=== PATIENT | female | born 1980 | race Caucasian/White ===

== ENCOUNTER 2016-12-29 13:36 | Outpatient (CLI) | payer BC | END 2016-12-29 23:00 | LOC: LAB SRH 13:36 | DX: E87.6 Hypokalemia (principal); D64.9 Anemia, unspecified | CPT/HCPCS: 90074; 90100; 92720; 95059 ==

== ENCOUNTER 2016-12-29 18:27 | Emergency (ER) | payer BC ==
--- NOTE | 2016-12-30 19:38 | ED NURSING NOTES ---
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 [facility], sts she had lab work done and was told to come in here, sts her potassium and blood is low, pt is noted to have an irregular HR in the 120's, pt refusing to gown, refusing to be monitored even though this RN explained how potassium affects the heart, need to see rhythm, pt also refusing an EKG, I explained to pt that we were going to recheck her labs per protocol as sometimes there are errors, pt is upset with this and argues the labs were just done this am and have been the same all week, I explained again that it was protocol, pt then sts Dr Marquez is supposed to see her here in the ER and she is to get IV potassium, I then explained the scnario to the ER DR, and that I was unable to even triage due to the lack of information, we called Dr Marquez, Dr Marquez sts "tell her I am sorry for the misunderstanding, I am not coming in, she is to be there for evaluation and care in the ER to order the right medications", this was relayed to the pt, she was again very upset, decided to call her sister, pt later put 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 --19:16 Camilla Dutta. DISPOSITION / DISCHARGE Departure time: 1900. The patient left the Emergency Department before triage and without being seen by a physician; patient was unaccompanied. The patient appears to be alert, oriented x4 and uncooperative. The patient notified the ED staff prior to leaving the department and stated is leaving the ED (Please see notes). Notified the ED physician and charge nurse of patient departure. Prior to leaving the ED, she was advised to stay for completion of treatment and return if needed. She was informed of the risks of leaving and verbalized understanding of these risks. Patient signed form prior to leaving. She left the Emergency Department ambulatory and via private vehicle. --19:18 Camilla Dutta. Locked/Released at 12/29/2016 19:19 by Camilla Dutta,
--- NOTE | 2016-12-30 19:38 | ED NURSING NOTES ---
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 [facility], sts she had lab work done and was told to come in here, sts her potassium and blood is low, pt is noted to have an irregular HR in the 120's, pt refusing to gown, refusing to be monitored even though this RN explained how potassium affects the heart, need to see rhythm, pt also refusing an EKG, I explained to pt that we were going to recheck her labs per protocol as sometimes there are errors, pt is upset with this and argues the labs were just done this am and have been the same all week, I explained again that it was protocol, pt then sts Dr Marquez is supposed to see her here in the ER and she is to get IV potassium, I then explained the scnario to the ER DR, and that I was unable to even triage due to the lack of information, we called Dr Marquez, Dr Marquez sts "tell her I am sorry for the misunderstanding, I am not coming in, she is to be there for evaluation and care in the ER to order the right medications", this was relayed to the pt, she was again very upset, decided to call her sister, 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 --19:16 Camilla Dutta. DISPOSITION / DISCHARGE Departure time: 1900. The patient left the Emergency Department before triage and without being seen by a physician; patient was unaccompanied. The patient appears to be alert, oriented x4 and uncooperative. The patient notified the ED staff prior to leaving the department and stated is leaving the ED (Please see notes). Notified the ED physician and charge nurse of patient departure. Prior to leaving the ED, she was advised to stay for completion of treatment and return if needed. She was informed of the risks of leaving and verbalized understanding of these risks. Patient signed form prior to leaving. She left the Emergency Department ambulatory and via private vehicle. --19:18 Camilla Dutta. Locked/Released at 12/29/2016 19:19 by Camilla Dutta,
--- NOTE | 2016-12-30 19:38 | ED DISCHARGE INSTRUCTIONS ---
Patient: MINA SHAW General Instructions [facility] VisitID: [id number] [address] [place] [address] 36y, F Registration Date/Time: 12/29/2016 left AMA. (Electronically signed by Mike Henao MD 12/30/2016 19:38)
--- NOTE | 2016-12-30 19:38 | ED MAR SUMMARY ---
..... Medication Administration Record [facility] [address] [place], [place] [id number] Patient: MINA SHAW Visit ID: [id number] 36y, F Weight: (not available) Height/Length: (not available) BMI: (not available) ALLERGIES:
--- NOTE | 2016-12-30 19:38 | ED CLINICAL REPORT ---
Clinical Report - Physicians/Mid Levels [facility] [address] [place] [address] 12/29/2016 18:28 Patient: MINA SHAW Time Seen: 18:32. Arrived- By private vehicle. Historian- patient. HISTORY OF PRESENT ILLNESS Chief Complaint: low potassium. ( Dr Marquez called to let ER know that this patient would be coming to the ER to treat low potassium of 2.4. Pt does not want to be admitted to the ER.). PROGRESS AND PROCEDURES Course of Care: Pt left before screening exam could be done. CLINICAL IMPRESSION left AMA. (Electronically signed by Mike Henao MD 12/30/2016 19:38)
--- NOTE | 2016-12-30 19:38 | ED CLINICAL REPORT ---
Clinical Report - Physicians/Mid Levels [facility] [address] [place] [address] 12/29/2016 18:28 Patient: MINA SHAW Time Seen: 18:32. Arrived- By private vehicle. Historian- patient. HISTORY OF PRESENT ILLNESS Chief Complaint: low potassium. ( Dr Marquez called to let ER know that this patient would be coming to the ER to treat low potassium of 2.4. Pt does not want to be admitted to the ER.). PROGRESS AND PROCEDURES Course of Care: Pt left before screening exam could be done. CLINICAL IMPRESSION left AMA. (Electronically signed by Mike Henao MD 12/30/2016 19:38)
--- NOTE | 2016-12-30 19:38 | ED MED RECONCILIATION SUMMARY ---
Patient: MINA SHAW Medication Reconciliation Report [facility] VisitID: [id number] [address] [place] [place] [address] 36y, F Registration Date/Time: 12/29/2016 Weight: (not available) Height/Length: (not available) BMI: (not available) ALLERGIES: The patient's Home Medications are listed below: Not obtained. The source(s) of the original Home Medication information: Not obtained. The following Medications were given to the patient in the Emergency Department: None. The following Medications were prescribed to the patient: None.
--- NOTE | 2016-12-30 19:38 | ED MAR SUMMARY ---
..... Medication Administration Record [facility] [address] [place], [place] [id number] Patient: MINA SHAW Visit ID: [id number] 36y, F Weight: (not available) Height/Length: (not available) BMI: (not available) ALLERGIES:
--- NOTE | 2016-12-30 19:38 | ED MED RECONCILIATION SUMMARY ---
Patient: MINA SHAW Medication Reconciliation Report [facility] VisitID: [id number] [address] [place] [address] 36y, F Registration Date/Time: 12/29/2016 Weight: (not available) Height/Length: (not available) BMI: (not available) ALLERGIES: The patient's Home Medications are listed below: Not obtained. The source(s) of the original Home Medication information: Not obtained. The following Medications were given to the patient in the Emergency Department: None. The following Medications were prescribed to the patient: None.
--- NOTE | 2016-12-30 19:38 | ED DISCHARGE INSTRUCTIONS ---
Patient: MINA SHAW General Instructions [facility] VisitID: [id number] [address] [place] [address] 36y, F Registration Date/Time: 12/29/2016 left AMA. (Electronically signed by Mike Henao MD 12/30/2016 19:38)
== END 2016-12-29 19:00 | disposition left against medical advice (07) ==
LOC: EDSTATUS 18:27 → ED SRH 18:28
DX: Z53.21 Procedure and treatment not carried out due to patient leaving prior to being seen by health care provider (principal)